=== PATIENT | male | born 1975 | race Two or more races ===

== ENCOUNTER 2018-09-28 14:58 | Emergency (ER) | payer BC ==
[~2018-09-28] VITALS: Ht 182.9 cm; Wt 88.5 kg
[2018-09-28] MEDS ORDERED: SOTALOL80 MG (15:06)
[2018-09-28] MEDS ORDERED: ATORVASTATIN CA10 MG (15:06)
[2018-09-28] MEDS ORDERED: BRILINTA60 MG (15:06)
[2018-09-28] MEDS ORDERED: ASPIR 8181 MG (15:06)
== END 2018-09-28 21:52 | disposition home or self-care (01) ==
LOC: ER 14:58
DX: J40 Bronchitis, not specified as acute or chronic (principal); J11.1 Influenza due to unidentified influenza virus with other respiratory manifestations

== ENCOUNTER 2018-10-11 21:49 | Emergency (ER) | payer BC ==
[~2018-10-11] VITALS: Ht 185.4 cm; Wt 99.8 kg
[~2018-10-11 21:49] MED LIST: ASPIR 8181 MG; ATORVASTATIN CA10 MG; BRILINTA60 MG; SOTALOL80 MG
[2018-10-12] MEDS ORDERED: TUSSIONEX PENN115 ML PO (04:44)
== END 2018-10-12 04:43 | disposition home or self-care (01) ==
LOC: ER 21:49 → CPU-OBS 21:59
DX: R06.02 Shortness of breath (principal); R07.89 Other chest pain